=== PATIENT | female | born 1960 | race Caucasian/White ===

== ENCOUNTER → 2017-01-24 | Outpatient (CLI) | payer BC ==
[~2017-01-24] MED LIST: ATEN50TA66; PRISTIQ
[2017-01-25 02:19] LABS: FREE T4 (FREE THYROXINE)-BATCH 0.93 NG/DL (0.78-2.19)
[2017-01-25 03:52] LABS: T3 FREE - BATCH 4.3 PG/ML (2.77-5.27)
== END ==
LOC: LAB 13:54
PROVIDERS: ATTEND Family Medicine
DX: E03.9 Hypothyroidism, unspecified (principal)
CPT/HCPCS: 36415; 84439; 84443; 84481; 84482

== ENCOUNTER → 2017-01-29 | Outpatient (CLI) | payer BC | LOC: LAB 12:09 | PROVIDERS: ATTEND Family Medicine | DX: R53.83 Other fatigue (principal) | CPT/HCPCS: 36415; 82627; 82670; 82679; 84270; 84402; 84403 ==